=== PATIENT | female | born 1995 | race Caucasian/White ===

== ENCOUNTER → 2016-12-20 | Outpatient (CLI) | payer BC ==
--- NOTE | 2016-12-20 21:37 | WWHP ---
DATE OF SERVICE: 12/20/2016 CHIEF COMPLAINT: The patient is here for her routine gynecologic exam. HPI: This is a 21-year-old G0 with an LMP of 11/2016. She is not certain of the date. She is using NuvaRing and she would like to continue using this. She denies any problems with the NuvaRing. PAST MEDICAL HISTORY: 1. Seasonal allergies. 2. Asthma. 3. Eczema. MEDICATIONS: 1. Zyrtec p.r.n. 2. NuvaRing as directed. ALLERGIES: PENICILLIN. PAST SURGICAL HISTORY: [place] teeth removed in the past. 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 SOCIAL HISTORY: She denies tobacco and drug use and has about 3 alcoholic drinks per month. She has been with her boyfriend since 2011 and lives with him. This has been her only sexual partner in her lifetime. 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 FAMILY HISTORY: Unchanged from the 2015 H&P. REVIEW OF SYSTEMS: She has gained about 8 pounds over the last year. She denies respiratory, cardiac, or GI problems. PHYSICAL EXAM: Blood pressure 133/71. Height 5 feet 3 inches. Weight 178 pounds. Temperature 97.5, pulse 68. This is a well-developed, well-nourished white female who is alert and oriented x3 in no acute distress. HEENT is within normal limits. NECK: Supple without mass or thyromegaly. CHEST AND LUNGS: Clear to auscultation. HEART: Regular rate and rhythm. Breasts are without mass or discharge. Axillary exam is negative for adenopathy. BACK: Negative for CVA tenderness. ABDOMEN: Soft, nontender, without palpable masses. PELVIC EXAM: Normal external genitalia. Cervix and vagina appear normal. There is no unusual discharge. There is no cervical motion tenderness. The uterus is midposition, nongravid size and nontender. There are no palpable adnexal masses or tenderness. Rectal exam was deferred. EXTREMITIES: Nontender. IMPRESSION: A 21-year-old gynecology healthy female doing well on the NuvaRing for control. PLAN: 1. Pap smear was deferred, since she had a normal one less than 2 years ago. 2. Self-breast examination was discussed. 3. GC and Chlamydia screening from the cervix has been obtained. 4. Continue NuvaRing and a prescription for the upcoming year was given to the patient. 5. She will return in one year.
== END | disposition home or self-care (01) ==
LOC: WWCWWP 09:45
PROVIDERS: ATTEND Obstetrics & Gynecology
DX: Z11.3 Encounter for screening for infections with a predominantly sexual mode of transmission (principal)
CPT/HCPCS: 87491; 87591

== ENCOUNTER → 2018-03-13 | Outpatient (CLI) | payer OTHER ==
[2018-03-13 10:57] VITALS: BP 126/84; PULSE 78; TEMP 98.8; BMI 27.9
--- NOTE | 2018-03-13 11:35 | P.HPOB ---
History of Present Illness H&P Date: 03/13/18 Chief Complaint: The patient is here for her routine gynecologic exam Is is a 23-year-old G0 with an LMP of 02/19/2018. The patient is without gynecologic complaints and is doing well with the Nuva ring. She is not planning to attempt in the near future. She is now engaged to be and the date will probably be in 2020. Review of Systems The patient has lost 15 pounds over the last year and has done this through diet and exercise. She denies respiratory or cardiac problems. G.I.: occasional stomach upset. Past Medical History Past Medical History: Asthma (not requiring medication), Skin Disorder (Eczema) Additional Past Medical History / Comment(s): Seasonal allergies. 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 History of Any Multi-Drug Resistant Organisms: None Reported Additional Past Surgical History / Comment(s): [place] teeth removed in the past. Past Psychological History: No Psychological Hx Reported Smoking Status: Never smoker Past Alcohol Use History: Occasional (5 per month) Past Drug Use History: None Reported Additional History: She has been with her fianc since 2011 and is engaged to be in 2019. She now works at [employer]. - Past Family History Mother Family Medical History: Myocardial Infarction ([place]) Additional Family Medical History / Comment(s): Grandfather had lung cancer and grandmother had diabetes and heart disease. Medications and Allergies Home Medications Medication Instructions Recorded Confirmed Type Etonogestrel/Ethinyl Estradiol ring VAGINAL DIRECTED 03/13/18 History [Nuvaring Vaginal Ring] Allergies Allergy/AdvReac Type Severity Reaction Status Date / Time Penicillins AdvReac Nausea & Unverified 03/13/18 10:49 Vomiting Exam Vital Signs Temp Pulse BP 03/13/18 10:53 98.8 F 78 126/84 Intake and Output 03/12/18 03/13/18 03/13/18 22:59 06:59 14:59 Other: Weight 73.936 kg Height 5'4", BMI 28.0. This is a well-developed well-nourished white female who is alert and oriented times 3 in no acute distress. HEENT: Within normal limits. NECK: Supple without mass or thyromegaly. CHEST AND LUNGS: Clear to auscultation. HEART: Regular rate and rhythm. BREASTS: Are without mass or discharge. AXILLARY EXAM: Negative for adenopathy. BACK: Negative for CVA tenderness. ABDOMEN: Soft, nontender, without palpable masses. PELVIC EXAM: Normal external genitalia. Cervix and vagina appear normal. There is no unusual discharge. There is no evidence of prolapse. The uterus is midposition, nongravid size and nontender. There are no palpable adnexal masses or tenderness. RECTAL EXAM: deferred EXTREMITIES: Nontender. IMPRESSION: 1. 23-year-old female with normal gynecologic exam doing well with the Nuvaring. PLAN: 1. Pap smear was performed. 2. Self breast awareness was discussed. 3. GC and Chlamydia screening were obtained from the cervix. 4. Continue the NuvaRing as directed. An electronic prescription will be sent to [facility] pharmacy. 5. The HPV vaccination was discussed. She will consider this and go to the health department for the vaccination if she wants to proceed with it. 6. STD prevention was discussed. 7. She will return in one year.
[2018-03-14 14:31] LABS: C. trachomatis,PCR Negative (Neg,Equiv); Chlamydia trachomatis Source Cervix; N. gonorrhoeae,PCR Negative (Neg,Equiv); Neisseria Source Cervix
== END | disposition home or self-care (01) ==
LOC: WWCWWP 10:41
PROVIDERS: ATTEND Obstetrics & Gynecology
DX: Z11.3 Encounter for screening for infections with a predominantly sexual mode of transmission (principal)
CPT/HCPCS: 87491; 87591